=== PATIENT | male | born 1965 | race Caucasian/White ===

== ENCOUNTER 2016-08-27 10:25 | Inpatient (IN) | payer MEDICAID ==
[2016-08-27] VITALS (9 sets, daily range): BP systolic 106–126; BP diastolic 76–86; PULSE 69–78; RESP 11–16
[~2016-08-27] VITALS: Ht 160 cm; Wt 72.7 kg
[2016-08-27] MEDS ORDERED: ASPIRIN 325 MG TAB PO STA (10:48)
[2016-08-27] MEDS ORDERED: NITROGLYCERIN 2% 1 GM OINT PKT TD STA (10:48)
--- NOTE | 2016-08-27 10:53 | ERA ---
ER Documentation Chief Complaint Date/Time DATE: 08/27/16 TIME: 10:49 Chief Complaint CP with SOB x 1 day HPI This is a 51-year-old male who presents with left-sided chest pressure radiating to his left upper extremity. The patient is a Kosovan speaker, and hot billet shear operator was used. He does not have any significant past medical history but does have a family history with a mother with acute SC at an early age. He states personally 3 years ago he felt something similar but was not evaluated. Over the course of that timeframe he occasionally has this discomfort usually when he is exerting himself and sweating while at work. He works in construction. He denies any exertional component today and states that the symptoms started yesterday evening. He describes constant symptoms now currently since yesterday around 11 PM. He denies any pleuritic pain, no migratory pain, no pain to the middle of his back. No reproducible symptoms. ROS All systems reviewed and are negative except as per history of present illness. Medications Home Meds No Active Prescriptions or Reported Meds Allergies Allergies: Coded Allergies: No Known Allergy (Unverified , 08/27/16) FmHx Family History: coronary disease, No diabetes Physical Exam Vitals Vital Signs Date Time Temp Pulse Resp B/P Pulse Ox O2 Delivery O2 Flow Rate FiO2 08/27/16 10:30 98.2 66 18 162/94 100 Physical Exam General: Well developed, well nourished, no acute distress Head: Normocephalic, atraumatic. Eyes: Pupils equally reactive, EOM intact ENT: Moist mucous membranes Neck: Supple, no lymphadenopathy Respiratory: Lungs clear bilaterally, no distress Cardiovascular: RRR, no murmurs, rubs, or gallops Abdominal: Soft, non-tender, non-distended, no peritoneal signs : Deferred MSK: No edema, no unilateral swelling, 5/5 strength, no pulse deficits Neurologic: Alert and oriented, moving all extremities, normal speech, no focal weakness, no cerebellar signs Skin: No rash Psych: Normal mood Result Diagram: 08/27/16 1105 08/27/16 1105 Results 24 hrs Laboratory Tests Test 08/27/16 11:05 White Blood Count 10.810^3/ul Red Blood Count 5.4510^6/ul Hemoglobin 16.0g/dl Hematocrit 45.6% Mean Corpuscular Volume 83.7fl Mean Corpuscular Hemoglobin 29.4pg Mean Corpuscular Hemoglobin Concent 35.1g/dl Red Cell Distribution Width 12.4% Platelet Count 34151^3/UL Mean Platelet Volume 10.7fl Neutrophils % 62.4% Lymphocytes % 27.9% Monocytes % 8.1% Eosinophils % 1.1% Basophils % 0.4% Nucleated Red Blood Cells % 0.0/100WBC Neutrophils # 6.710^3/ul Lymphocytes # 3.010^3/ul Monocytes # 0.910^3/ul Eosinophils # 0.110^3/ul Basophils # 0.010^3/ul Nucleated Red Blood Cells # 0.010^3/ul Prothrombin Time 13.0Sec Prothrombin Time Ratio 1.0 INR International Normalized Ratio 0.98 Activated Partial Thromboplast Time 26.5Sec Sodium Level 137mmol/L Potassium Level 3.9mmol/L Chloride Level 94mmol/L Carbon Dioxide Level 27mmol/L Anion Gap 20 Blood Urea Nitrogen 9mg/dl Creatinine 0.72mg/dl Glucose Level 338mg/dl Calcium Level 9.3mg/dl Troponin I 5.590ng/ml Current Medications Medications (Trade) Dose Ordered Sig/Vitaly Route PRN Reason Start Time Stop Time Status Last Admin Dose Admin Aspirin (Aspirin) 325 mg ONCE STAT PO 08/27/16 10:48 08/27/16 10:49 DC 08/27/16 11:16 Nitroglycerin (Nitroglycerin 2% Oint) 1 inch ONCE STAT TD 08/27/16 10:48 08/27/16 10:49 DC 08/27/16 11:16 Morphine Sulfate (morphine) 4 mg ONCE STAT IV 08/27/16 11:56 08/27/16 11:58 DC Ondansetron HCl (Zofran Inj) 4 mg ONCE STAT IV 08/27/16 11:56 08/27/16 11:58 DC Heparin Sodium (Porcine) (Heparin (1000 Units/ml)) 5,000 unit ONCE STAT IV 08/27/16 12:08 08/27/16 12:09 DC Procedures/MDM EKG, MONITORS, & DIAGNOSTIC IMAGING: EKG: I reviewed and interpreted a 12-lead EKG. Rhythm: Normal sinus rhythm Ectopy: None Intervals: No abnormalities ST segments: No elevations or depressions T waves: No contiguous inversions Repeat EKG: EKG: I reviewed and interpreted a 12-lead EKG. Rhythm: Normal sinus rhythm Ectopy: None Intervals: No abnormalities ST segments: No elevations or depressions T waves: No contiguous inversions 3rd EKG EKG: I reviewed and interpreted a 12-lead EKG. Rhythm: Normal sinus rhythm Ectopy: None Intervals: No abnormalities ST segments: No elevations or depressions T waves: No contiguous inversions Chest x-ray: I reviewed and interpreted a 1 view of the chest Mediastinum: No enlargement Cardiac silhouette: No cardiomegaly Airspace: Clear lung vance bilaterally without evidence of pneumothorax Bones: No evidence of fracture LAB INTERPRETATION: Elevated troponin, elevated glucose MEDICAL DECISION MAKING: The patient's history, physical exam and clinical presentation is concerning for possible cardiogenic etiology and acute coronary syndrome. I am somewhat concerned about the patient's exertional component as well as his family history however the patient does not have any other significant past medical history to suggest early cardiac disease. However, the patient also does not have a primary care physician. All these elements warrant cardiac workup in the emergency room and inpatient hospitalization to rule out ACS can risk stratify the patient and consider provocative testing. Based on the patient's clinical exam and history and risk factors, I have a much lower clinical concern for pulmonary embolism, acute aortic dissection, pneumothorax, pneumonia, cardiac tamponade HEART Score: 2 MACE Rate: 1.7% Shared Decision Making: We had a conversation regarding risk stratification, MACE rate, and the risks, benefits, alternatives of disposition planning options. Disposition planning: I strongly recommend hospitalization given his exertional component, family history and lack of outpatient follow-up. ER COURSE: Aspirin and nitroglycerin provided. Improved chest pain. The patient still has approximately 5 out of 10 chest pain. His troponin is come back significantly elevated. Given the patient's persistence of pain, the fact that he has a non-ST elevation myocardial infarction consistent with likely unstable angina and high risk for occlusive lesion I have contacted the customer service engineer. The patient does not meet STEMI criteria however may benefit from urgent angiography. Dr. Swartz, is the credit card clerk on-call , has reviewed the EKGs and the case and recommends heparin bolus of 5000 units and will take the patient to the Cat Swamper. We finalized a conversation at 12: 05 PM. The patient was informed using an hot billet shear operator. He was provided morphine for pain. Cardiac pads were placed on the patient. He is being prepped for the Cat Swam[facility]. Cat Swamper activated at 12:09 PM I kept the patient and/or family informed of laboratory and diagnostic imaging results throughout the emergency room course. DISPOSITION PLAN: Telemetry admission for risk stratification, consideration for provocative testing and rule out of acute coronary syndrome. CONSULTATION: Accepting care team and consultations: I discussed the current laboratory data, diagnostic imaging and emergency care provided. Admitting team: Dr. Pool Admitting team indication: Insurance directed certified pharmacist assistant on-call Dr. Swartz is en route Critical Care Note: Total time: 46 minutes Indication/Organ System Threat: Acute coronary syndrome I spent the above amount of critical care time with the patient, not including billable procedures. This included chart review, consultations, repeat bedside evaluations, and titration of appropriate medications to prevent cardiopulmonary or respiratory collapse. Departure Diagnosis: Primary Impression: Chest pain Qualified Code: R07.9 - Chest pain, unspecified type Additional Impressions: Non-ST elevation myocardial infarction (NSTEMI) Acute coronary syndrome Hyperglycemia Condition: Serious RIKI BANUELOS MD Aug 27, 2016 10:53
[2016-08-27 11:13] LABS: BASOPHILS % 0.4 % (0.0-2.0); EOSINOPHILS # 0.1 10^3/ul (0.0-0.5); EOSINOPHILS % 1.1 % (0.0-7.0); HEMATOCRIT 45.6 % (42.0-52.0); LYMPHOCYTES % 27.9 % (15.0-51.0); MEAN CORPUSCULAR HEMOGLOBIN 29.4 pg (29.0-33.0); MEAN CORPUSCULAR HGB CONC 35.1 g/dl (32.0-37.0); MEAN CORPUSCULAR VOLUME 83.7 fl (82.0-101.0); MEAN PLATELET VOLUME 10.7 fl (7.4-10.4); MONOCYTE # 0.9 10^3/ul (0.3-0.9); MONOCYTES % 8.1 % (0.0-11.0); NEUTROPHIL # 6.7 10^3/ul (1.6-7.5); NEUTROPHILS % 62.4 % (39.0-77.0); PLATELET COUNT 271 10^3/UL (140-415); RED BLOOD COUNT 5.45 10^6/ul (4.70-6.10); RED CELL DISTRIBUTION WIDTH 12.4 % (11.5-14.5); WHITE BLOOD COUNT 10.8 10^3/ul (4.8-10.8)
--- NOTE | 2016-08-27 11:33 | RADRPT ---
PROCEDURE: Chest x-ray CLINICAL INDICATION: Chest pain TECHNIQUE: Chest single view COMPARISON: None FINDINGS: The heart is normal in size. The pulmonary vessels are normal in caliber. The lungs are clear. Th e costophrenic angles are sharp. The visualized bony thorax is unremarkable. IMPRESSION: No acute cardiopulmonary disease. RPTAT: HH .Peter Funes MD, Date Time Electronically viewed and signed by .Peter Funes MD, MD on 08/27/2016 11:33 .W/
[2016-08-27 11:35] LABS: CALCIUM 9.3 mg/dl (8.4-10.2); CREATININE 0.72 mg/dl (0.61-1.24); POTASSIUM 3.9 mmol/L (3.5-5.1)
[2016-08-27 11:42] LABS: INR 0.98
[2016-08-27 11:43] LABS: PARTIAL THROMBOPLASTIN TIME 26.5 Sec (25.0-35.0)
[2016-08-27 11:54] LABS: TROPONIN-I 5.59 ng/ml (0.00-0.12)
[2016-08-27] MEDS ORDERED: morphine 4 MG/ML VIAL IV STA (11:56)
[2016-08-27] MEDS ORDERED: ONDANSETRON 4 MG INJ IV STA (11:56)
[2016-08-27] MEDS ORDERED: HEPARIN 1000 UNITS/ML 10 ML INJ IV STA (12:08)
[2016-08-27] MEDS ORDERED: LIDOCAINE 1% (MDV) 20 ML INJ ONE (12:38)
[2016-08-27] MEDS ORDERED: FENTAnyl 50 MCG/ML VIAL ONE (12:38)
[2016-08-27] MEDS ORDERED: HEPARIN 1000 UNITS/ML 10 ML INJ ONE (12:38)
[2016-08-27] MEDS ORDERED: IODIXANOL LOCM 100 ML BTL ONE ×2 (12:38→14:49)
[2016-08-27] MEDS ORDERED: MIDAZOLAM 1 MG/ML 2 ML INJ ONE ×2 (12:39→14:10)
[2016-08-27] MEDS ORDERED: VERAPAMIL 5 MG INJ ONE (12:39)
[2016-08-27] MEDS ORDERED: NITROGLYCERIN (IC) 100 MCG/ML INJ ONE (12:39)
--- NOTE | 2016-08-27 12:57 | CONS ---
Date/Time of Note Date/Time of Note DATE: 08/27/16 TIME: 12:42 Assessment/Plan Assessment/Plan Chief Complaint/Hosp Course 51 yo with NSTEMI. Problems: Additional Assessment/Plan NSTEMI Hyperglycemia, probable diabetes Binge alcoholism Plan: Cardiac catheterization with possible intervention The procedure, risks and benefits discussed with the patient and his , with an power transformer repairer present He agrees to proceed, all questions answered Patient received asa and heparin in the ER, will further anticoagulate based on laboratory phlebotomist findings Appropriate meds and echo Patient has been advised that the quantity of etoh that he is drinking is not healthy Consultation Date/Type/Reason Admit Date/Time August 27, 2016 Date of Consultation: Aug 27, 2016 Reason for Consultation NSTEMI and persistent chest pain Referring Provider: RIKI BANUELOS MD Hx of Present Illness 51 year-old who has not seen a doctor in 15 years, presents to the ER with chest pressure that has been intermittent since yesterday. He had a similar episode, less severe, about 6 years ago, for which he did not seek medical care. Pain has been associated with diaphoresis. 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 When I was called, patient was having persistent pain, but since then he has received morphine which has relieved the pain. He quit smoking 13 years ago, but admits to binge drinking, and will have 9-12 beers at a time. Last alcoholic beverage was a week ago. Mother had some sort of similar event in [facility] in her 30's, was treated with medicines, is still alive. History obtained with the assistance of Micheal GARZA who served as travel money advisor Constitutional: improved Eyes: no complaints ENT: no complaints Respiratory: no complaints Cardiovascular: chest pain Gastrointestinal: no complaints Genitourinary: no complaints Musculoskeletal: other (arm discomfort as above) Skin: no complaints Neurologic: no complaints Endocrine: no complaints Psychological: nl mood/affect, no complaints Past Medical History Medical History: no pertinent history (Has not seen a doctor in 15 years) Past Surgical History Past Surgical Hx: other (left hand surgery due to shrapnel injury during war in [facility]) Family History Significant Family History: heart disease (questionable NV in mother at young age) Social History works construction Alcohol Use: heavy (binge drinking as in hpi) Smoking Status: Former smoker Drug Use: none Exam/Review of Systems Vital Signs Vitals Vital Signs Date Time Temp Pulse Resp B/P Pulse Ox O2 Delivery O2 Flow Rate FiO2 08/27/16 12:00 69 19 128/94 98 Room Air 08/27/16 10:30 98.2 Exam Constitutional: alert, oriented, well developed Psych: nl mood/affect, no complaints Head: atraumatic, normocephalic Eyes: EOMI, PERRL, nl conjunctiva, nl lids, nl sclera ENMT: nl external ears & nose, nl lips & teeth, nl nasal mucosa & septum Neck: non-tender, supple Respiratory: clear to auscultation, normal air movement Cardiovascular: nl pulses, other (PMI not palpable), regular rate and rhythm, No murmurs/extra sounds Gastrointestinal: non-tender, soft, No hepatomegaly Musculoskeletal: nl extremities to inspection Extremities: normal pulses (Normal radial and DP pulses) Neurological: nl mental status, nl speech Skin: nl turgor, No rash or lesions Results Positive troponin and elevated glucose noted. Result Diagram: 08/27/16 1105 08/27/16 1105 Results 24 hrs Laboratory Tests Test 08/27/16 11:05 White Blood Count 10.8 Red Blood Count 5.45 Hemoglobin 16.0 Hematocrit 45.6 Mean Corpuscular Volume 83.7 Mean Corpuscular Hemoglobin 29.4 Mean Corpuscular Hemoglobin Concent 35.1 Red Cell Distribution Width 12.4 Platelet Count 271 Mean Platelet Volume 10.7 H Neutrophils % 62.4 Lymphocytes % 27.9 Monocytes % 8.1 Eosinophils % 1.1 Basophils % 0.4 Nucleated Red Blood Cells % 0.0 Neutrophils # 6.7 Lymphocytes # 3.0 H Monocytes # 0.9 Eosinophils # 0.1 Basophils # 0.0 Nucleated Red Blood Cells # 0.0 Prothrombin Time 13.0 Prothrombin Time Ratio 1.0 INR International Normalized Ratio 0.98 Activated Partial Thromboplast Time 26.5 Sodium Level 137 Potassium Level 3.9 Chloride Level 94 L Carbon Dioxide Level 27 Anion Gap 20 H Blood Urea Nitrogen 9 Creatinine 0.72 Glucose Level 338 H Calcium Level 9.3 Troponin I 5.590 *H Procedures Procedures EKG demonstrates NSR, incomplete RBBB, inferior infarct age indeterminate, subtle ST elevations 1 mm in V3-V4 RIDDHI RANDHAWA Aug 27, 2016 12:55
[2016-08-27] MEDS ORDERED: SOD CHLORIDE 0.9% 500 ML ONE (13:08)
[2016-08-27] MEDS ORDERED: CLOPIDOGREL 300 MG TAB ONE ×2 (13:48→14:25)
[2016-08-27] MEDS ORDERED: IODIXANOL LOCM 50 ML BTL ONE (14:49)
[2016-08-27] MEDS ORDERED: SOD CHLORIDE 0.9% 1,000 ML IV SCH (15:00)
[2016-08-27] MEDS ORDERED: METOPROLOL (XL) 25 MG TAB PO SCH (15:00)
--- NOTE | 2016-08-27 15:13 | EN ---
Date/Time of Note Date/Time of Note DATE: 08/27/16 TIME: 14:53 Event Note Cardiology Cardiology Event Note Cardiac Catheterization Report Date of Procedure: August 27, 2016 Pre-Procedure Dx: NSTEMI with persistent pain Post-Procedure Dx: Same, with 3 vessel coronary disease, Procedures performed: Coronary angiography, left heart catheterization, left ventriculography, angioplasty and stent placement to the mid LAD and ostial/ proximal LCX extending into the OM1 Findings: Left main normal LAD appears normal in its very short proximal portion. There is a mid lesion 90 %, 17 mm in length. There is a moderate sized high diagonal vessel which bifurcates into two small vessels and these are diffusely diseased. The distal LAD wraps around the apex to feed the PDA territory. LCX has an 80% ostial and proximal lesion extending just past a large OM1. The vessel distal to the OM1 is small and diffusely diseased. The LCX and OM give collaterals to the inferior wall. 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 LVEF 70% with very focal inferobasal akinesis. A gradient was measured, and appeared to be increased (see log), but doubt that this is accurate as there was no difficulty in the catheter crossing the aortic valve, and will be reassessed with echo. Indications: Patient presented with chest pain starting yesterday, was stuttering in nature, and persistent this morning. EKG shows an incomplete RBBB , inferior Q's, and some nonspecific changes. However, pain was persistent, and troponin elevated at 5, so patient brought urgently to the pathology laboratory aide. Informed consent obtained using Micheal GARZA as exercise specialist. Patient received sedation with versed and fentanyl. Then access obtained in right radial artery after Terence's test, modified Seldinger technique used, 6F sheath placed. Patient already received heparin in the ER. Verapamil 2.5 mg and ntg 200 mcg given through the sheath. Using a J-wire, Rashaad catheter advanced to the aortic root, was not successful in engaging any coronaries, so a FL4 engaged an anomalous RCA and a FL 3.5 engaged the left main. Images taken with injection of contrast. All catheters removed over an exchange length wire. An LV gram was performed with a pigtail catheter, contrast injected and images taken. Based on the presence of significant two vessel coronary disease with occluded RCA, with normal LV systolic function, it was decided to proceed with a coronary intervention, to intervene upon the more critically significant LAD, and then proceed to the ostial LCX if the LAD intervention was not complicated. Additional heparin was administered and ACT was ascertained to be sufficiently elevated. An FL3.5 guide catheter was used. A Luge wire passed through the mid LAD lesion without difficulty, and the lesion was direct stented with a 2.5 x 20 mm drug-eluting stent. Following this, the guide catheter was exchanged for a CLS 3.0 for better support. This engaged the LM without difficulty. The same Luge wire was redirected down the LCX and OM. The LCX lesion was directly stented with a 3.0 x 12 mm drug-eluting stent. Angiography was performed to assess both vessel interventions, including wire out shots, demonstrating good apposition of both stents and no dissection. During the case the patient received a total of 600 mg of clopidogrel. At the end of the case, the radial sheath was removed and replaced with a TR band. Discussion: NSTEMI with the culprit lesion likely the mid LAD, and also with a significant LCX lesion. Both were successfully addressed with direct stenting with drug-eluting stents. The RCA was thought to be chronically occluded. There was brief consideration of sending the patient for CABG, given 3-vessel coronary disease in a diabetic, but it was felt that with normal LVEF and fairly uncomplicated lesions that a PCI would be a good option. Findings discussed with the patient and his , using Micheal GARZA as an grain elevator operator, discussed importance of medication compliance. Anticipate discharge home tomorrow, with need for regular follow-up. RIDDHI RANDHAWA Aug 27, 2016 15:12
[2016-08-27] MEDS ORDERED: HYDROCODONE/APAP (5/325) TAB PO PRN (15:30)
[2016-08-27] MEDS ORDERED: MAGNESIUM HYDROXIDE 30ML CUP PO PRN (15:30)
[2016-08-27] MEDS ORDERED: ALBUTEROL/IPRATROPIUM (NEB) 3 ML AMP HHN PRN (15:30)
[2016-08-27] MEDS ORDERED: ACETAMINOPHEN 325 MG TAB PO PRN (15:30)
[2016-08-27] MEDS ORDERED: LORAZEPAM 2 MG INJ IV PRN (15:30)
[2016-08-27] MEDS ORDERED: DOCUSATE SODIUM 100 MG CAP PO PRN (15:30)
[2016-08-27] MEDS ORDERED: NACL 0.9% 3 ML SYG IV SCH (15:30)
[2016-08-27] MEDS ORDERED: hydrALAzine 20 MG INJ IV PRN (15:30)
[2016-08-27] MEDS ORDERED: ONDANSETRON 4 MG INJ IV PRN (15:30)
[2016-08-27] MEDS ORDERED: NA PHOSPHATE/BIPHOS 133 ML ENEMA PR PRN (15:30)
[2016-08-27] MEDS ORDERED: morphine 2 MG INJ IV PRN (15:30)
--- NOTE | 2016-08-27 15:39 | HP ---
Date/Time of Note Date/Time of Note DATE: 08/27/16 TIME: 15:35 Assessment/Plan VTE Prophylaxis VTE Prophylaxis Intervention: other (Aspirin, Plavix) Lines/Catheters IV [facility]ter [facility] Peripheral IV Assessment/Plan Chief Complaint/Hosp Course Assessment and plan: 51-year-old male with chest pain symptoms, signs of elevated troponin non-ST elevation ME, status post left heart cath with 2 drug- eluting stents placed for blockage. 1. Chest pain: Again status post left heart cath for non-ST elevation ME. -Continue aspirin Plavix, follow-up A1c, follow-up cardiology recommendations , continue current cardiac medications. Continue statin, monitor for signs of any chest pain. 2. Probable diabetes: Start sliding scale insulin, follow-up A1c. 3. History of alcoholism: Monitor for signs of withdrawal, consider starting banana bag. Ativan as needed. If worse symptoms, consider Librium. 4. GI prophylaxis: H2 josé miguel Problems: HPI/ROS Admit Date/Time Admit Date/Time August 27, 2016 ROS 51-year-old male past medical history of diabetes, hypertension, who presents with left-sided chest pressure radiating to his left upper extremity. He does not have any significant past medical history but does have a family history with a mother with acute ME at an early age. He states personally 3 years ago he felt something similar but was not evaluated. Over the course of that timeframe he occasionally has this discomfort usually when he is exerting himself and sweating while at work. He works in construction. He denies any exertional component today and states that the symptoms started yesterday evening. He describes constant symptoms now currently since yesterday around 11 PM. He denies any pleuritic pain, no migratory pain, no pain to the middle of his back. No reproducible symptoms. When he came into the ER today he was found with elevated troponin, signs of non-ST elevated ME, and taken to the Thermodynamics Engineer where he had 2 stents placed, one to his LAD, 1 to his circumflex artery. He is presently in the intensive care unit now on aspirin and Plavix. Eyes: no complaints ENT: no complaints Respiratory: no complaints Cardiovascular: chest pain Gastrointestinal: no complaints Genitourinary: no complaints Musculoskeletal: other (arm discomfort as above) Skin: no complaints Neurologic: no complaints Psychological: nl mood/affect, no complaints PMH/Family/Social Past Medical History Medical History: no pertinent history (Has not seen a doctor in 15 years) Past Surgical History Past Surgical Hx: other (left hand surgery due to shrapnel injury during war in [facility]) Social History Alcohol Use: heavy (binge drinking as in hpi) Smoking Status: Former smoker Drug Use: none Exam/Review of Systems Vital Signs Vitals Vital Signs Date Time Temp Pulse Resp B/P Pulse Ox O2 Delivery O2 Flow Rate FiO2 08/27/16 12:45 73 14 128/91 98 08/27/16 12:00 Room Air 08/27/16 10:30 98.2 Exam Exam General: Well developed, well nourished, no acute distress Head: Normocephalic, atraumatic. Eyes: Pupils equally reactive, EOM intact ENT: Moist mucous membranes Neck: Supple, no lymphadenopathy Respiratory: Lungs clear bilaterally, no distress Cardiovascular: RRR, no murmurs, rubs, or gallops Abdominal: Soft, non-tender, non-distended, no peritoneal signs MSK: No edema, no unilateral swelling, 5/5 strength, no pulse deficits Neurologic: Alert and oriented, moving all extremities, normal speech, no focal weakness, no cerebellar signs Psych: Normal mood Labs Result Diagram: 08/27/16 1105 08/27/16 1105 Medications Medications Current Medications Sodium Chloride (NS) 1,000 ml @ 100 mls/hr Q10H IV ; Start 08/27/16 at 15:00; Stop 08/28/16 at 00:59 Aspirin (Aspirin) 81 mg DAILY PO ; Start 08/28/16 at 09:00 Clopidogrel Bisulfate (plaVIX) 75 mg DAILY PO ; Start 08/28/16 at 09:00 Atorvastatin Calcium (Lipitor) 80 mg HS PO ; Start 08/27/16 at 21:00 Losartan Potassium (Cozaar) 25 mg DAILY PO ; Start 08/28/16 at 09:00 Metoprolol Succinate (Toprol Xl) 25 mg DAILY PO ; Start 08/27/16 at 15:00 PÉREZ KELLEY Aug 27, 2016 15:39
[2016-08-27] MEDS ORDERED: GLUCOSE GEL 15 GRAM TUBE BUCCAL PRN (16:00)
[2016-08-27] MEDS ORDERED: DEXTROSE 50% 50 ML SYRINGE IV PRN ×2 (16:00)
[2016-08-27] MEDS ORDERED: GLUCOSE GEL 15 GRAM TUBE PO PRN ×2 (16:00)
[2016-08-27] MEDS ORDERED: GLUCAGON 1 MG INJ IM PRN (16:00)
[2016-08-27] MEDS: FAMOTIDINE 20 MG TAB PO SCH ×2 (16:21→20:13)
[2016-08-27 17:28] LABS: BASOPHILS % 0.4 % (0.0-2.0); EOSINOPHILS # 0.1 10^3/ul (0.0-0.5); EOSINOPHILS % 1.3 % (0.0-7.0); HEMATOCRIT 43.9 % (42.0-52.0); HEMOGLOBIN 15.1 g/dl (14.0-18.0); LYMPHOCYTES # 3.6 10^3/ul (0.8-2.9); LYMPHOCYTES % 33.4 % (15.0-51.0); MEAN CORPUSCULAR HEMOGLOBIN 29.2 pg (29.0-33.0); MEAN CORPUSCULAR HGB CONC 34.4 g/dl (32.0-37.0); MEAN CORPUSCULAR VOLUME 84.9 fl (82.0-101.0); MONOCYTE # 0.8 10^3/ul (0.3-0.9); MONOCYTES % 7.7 % (0.0-11.0); NEUTROPHIL # 6.1 10^3/ul (1.6-7.5); PLATELET COUNT 235 10^3/UL (140-415); RED BLOOD COUNT 5.17 10^6/ul (4.70-6.10); RED CELL DISTRIBUTION WIDTH 12.5 % (11.5-14.5); WHITE BLOOD COUNT 10.7 10^3/ul (4.8-10.8)
[2016-08-27] MEDS: INSULIN ASPART [NOVOLOG] 3 ML PEN SC SCH ×2 (17:40→20:13)
[2016-08-27 18:03] LABS: CK-MB 18.9 ng/ml (0.0-2.4); TROPONIN-I 7.69 ng/ml (0.00-0.12)
[2016-08-27] MEDS: NITROGLYCERIN (SL) 0.4 MG TAB SL PRN (19:42)
[2016-08-27] MEDS: ATORVASTATIN 80 MG TAB PO SCH (20:13)
[2016-08-27] MEDS: INSULIN GLARGINE [LANtus] 3 ML PEN SC SCH (20:15)
[2016-08-27 23:42] LABS: TROPONIN-I 6.24 ng/ml (0.00-0.12)
[2016-08-28] VITALS (18 sets, daily range): BP systolic 103–129; BP diastolic 66–95; PULSE 69–81; RESP 10–22; Ht 160 cm; Wt 72.7 kg
[2016-08-28] MEDS: ACCU-CHEK XX SCH (02:16)
[2016-08-28] MEDS: NITROGLYCERIN (SL) 0.4 MG TAB SL PRN (02:16)
[2016-08-28 05:31] LABS: BASOPHILS % 0.4 % (0.0-2.0); EOSINOPHILS # 0.1 10^3/ul (0.0-0.5); EOSINOPHILS % 0.7 % (0.0-7.0); HEMATOCRIT 40.3 % (42.0-52.0); HEMOGLOBIN 13.9 g/dl (14.0-18.0); LYMPHOCYTES # 2.6 10^3/ul (0.8-2.9); MEAN CORPUSCULAR HGB CONC 34.5 g/dl (32.0-37.0); MEAN CORPUSCULAR VOLUME 84.1 fl (82.0-101.0); MEAN PLATELET VOLUME 10.9 fl (7.4-10.4); MONOCYTES % 8.8 % (0.0-11.0); NEUTROPHIL # 7.5 10^3/ul (1.6-7.5); NEUTROPHILS % 66.7 % (39.0-77.0); PLATELET COUNT 232 10^3/UL (140-415); RED BLOOD COUNT 4.79 10^6/ul (4.70-6.10); RED CELL DISTRIBUTION WIDTH 12.9 % (11.5-14.5); WHITE BLOOD COUNT 11.3 10^3/ul (4.8-10.8)
[2016-08-28 05:56] LABS: MAGNESIUM 1.8 mg/dl (1.7-2.5); PHOSPHORUS 3.3 mg/dl (2.5-4.9)
[2016-08-28 05:59] LABS: CALCIUM 8.6 mg/dl (8.4-10.2); CHOL/HDL RATIO 7.8 RATIO; CREATININE 0.76 mg/dl (0.61-1.24)
--- NOTE | 2016-08-28 07:16 | PN ---
Date/Time of Note Date/Time of Note DATE: 08/28/16 TIME: 07:06 Assessment/Plan VTE Prophylaxis VTE Prophylaxis Intervention: ambulation Lines/Catheters [facility] Saline Lock Assessment/Plan Chief Complaint/Hosp Course 51 yo with NSTEMI, post pci to LCX and LAD, with a chronically occluded RCA. 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 Exam/Review of Systems Vital Signs Vitals Vital Signs Date Time Temp Pulse Resp B/P Pulse Ox O2 Delivery O2 Flow Rate FiO2 08/28/16 06:00 76 16 125/88 99 Room Air 08/28/16 04:00 98.3 Intake and Output 08/27/16 08/27/16 08/28/16 15:00 23:00 07:00 Intake Total 820 ml 200 ml Output Total 1000 ml Balance 820 ml -800 ml Exam Constitutional: alert, oriented, well developed Psych: nl mood/affect, no complaints Head: atraumatic, normocephalic Eyes: EOMI, nl conjunctiva ENMT: nl external ears & nose Neck: non-tender, supple, No bruits, No jvd Respiratory: clear to auscultation, normal air movement Cardiovascular: nl pulses, regular rate and rhythm Gastrointestinal: non-tender, soft Musculoskeletal: nl extremities to inspection Extremities: normal pulses (right radiall pulse intact, right wrist warm) Neurological: nl mental status, nl speech Skin: nl turgor, No rash or lesions Results Result Diagram: 08/28/16 0438 08/28/16 0438 Results 24 hrs Laboratory Tests Test 08/27/16 11:05 08/27/16 17:01 08/27/16 17:24 08/27/16 20:11 White Blood Count 10.8 10.7 Red Blood Count 5.45 5.17 Hemoglobin 16.0 15.1 Hematocrit 45.6 43.9 Mean Corpuscular Volume 83.7 84.9 Mean Corpuscular Hemoglobin 29.4 29.2 Mean Corpuscular Hemoglobin Concent 35.1 34.4 Red Cell Distribution Width 12.4 12.5 Platelet Count 271 235 Mean Platelet Volume 10.7 H 11.0 H Neutrophils % 62.4 57.0 Lymphocytes % 27.9 33.4 Monocytes % 8.1 7.7 Eosinophils % 1.1 1.3 Basophils % 0.4 0.4 Nucleated Red Blood Cells % 0.0 0.0 Neutrophils # 6.7 6.1 Lymphocytes # 3.0 H 3.6 H Monocytes # 0.9 0.8 Eosinophils # 0.1 0.1 Basophils # 0.0 0.0 Nucleated Red Blood Cells # 0.0 0.0 Prothrombin Time 13.0 Prothrombin Time Ratio 1.0 INR International Normalized Ratio 0.98 Activated Partial Thromboplast Time 26.5 Sodium Level 137 Potassium Level 3.9 Chloride Level 94 L Carbon Dioxide Level 27 Anion Gap 20 H Blood Urea Nitrogen 9 Creatinine 0.72 Glucose Level 338 H Calcium Level 9.3 Troponin I 5.590 *H 7.690 *H Hemoglobin A1c 12.8 H Creatine Kinase 352 H Creatine Kinase Index 5.4 Creatinine Kinase MB (Mass) 18.90 H Free Thyroxine 1.10 Bedside Glucose 196 152 Test 08/27/16 22:28 08/28/16 02:15 08/28/16 04:38 Creatine Kinase 301 H Creatine Kinase Index 4.3 Creatinine Kinase MB (Mass) 13.00 H Troponin I 6.240 *H Bedside Glucose 219 White Blood Count 11.3 H Red Blood Count 4.79 Hemoglobin 13.9 L Hematocrit 40.3 L Mean Corpuscular Volume 84.1 Mean Corpuscular Hemoglobin 29.0 Mean Corpuscular Hemoglobin Concent 34.5 Red Cell Distribution Width 12.9 Platelet Count 232 Mean Platelet Volume 10.9 H Neutrophils % 66.7 Lymphocytes % 23.0 Monocytes % 8.8 Eosinophils % 0.7 Basophils % 0.4 Nucleated Red Blood Cells % 0.0 Neutrophils # 7.5 Lymphocytes # 2.6 Monocytes # 1.0 H Eosinophils # 0.1 Basophils # 0.0 Nucleated Red Blood Cells # 0.0 Sodium Level 139 Potassium Level 4.0 Chloride Level 100 Carbon Dioxide Level 28 Anion Gap 15 Blood Urea Nitrogen 11 Creatinine 0.76 Glucose Level 211 # Hemoglobin A1c 12.3 H Calcium Level 8.6 Phosphorus Level 3.3 Magnesium Level 1.8 Triglycerides Level 205 H Cholesterol Level 181 LDL Cholesterol, Calculated 117 HDL Cholesterol 23 L Cholesterol/HDL Ratio 7.8 Medications Medications Current Medications Aspirin (Aspirin) 81 mg DAILY PO ; Start 08/28/16 at 09:00 Clopidogrel Bisulfate (plaVIX) 75 mg DAILY PO ; Start 08/28/16 at 09:00 Atorvastatin Calcium (Lipitor) 80 mg HS PO Last administered on 08/27/16 20:13 ; Admin Dose 80 MG; Start 08/27/16 at 21:00 Losartan Potassium (Cozaar) 25 mg DAILY PO ; Start 08/28/16 at 09:00 Metoprolol Succinate (Toprol Xl) 25 mg DAILY PO Last administered on 08/27/16 17:24; Admin Dose 25 MG; Start 08/27/16 at 15:00 Ondansetron HCl (Zofran Inj) 4 mg Q6H PRN IV NAUSEA AND/OR VOMITING; Start at 15:30 Acetaminophen (Tylenol Tab) 650 mg Q6H PRN PO PAIN LEVEL 1-3 OR FEVER; Start at 15:30 Acetaminophen/ Hydrocodone Bitart ([place] (5/325)) 1 tab Q6H PRN PO MODERATE PAIN LEVEL 4-6; Start 08/27/16 at 15:30 Morphine Sulfate (morphine) 2 mg Q4H PRN IV SEVERE PAIN LEVEL 7-10 Last administered on 08/27/16 19:12; Admin Dose 2 MG; Start 08/27/16 at 15:30 Docusate Sodium (Colace) 100 mg Q12H PRN PO CONSTIPATION; Start 08/27/16 at 15: 30 Magnesium Hydroxide (Milk Of Mag) 30 ml DAILY PRN PO CONSTIPATION; Start at 15:30 Sodium Biphosphate/ Sodium Phosphate (Fleet Enema) 133 ml DAILY PRN MS CONSTIPATION; Start 08/27/16 at 15:30 Famotidine (Pepcid) 20 mg Q12 PO Last administered on 08/27/16 20:13; Admin Dose 20 MG; Start 08/27/16 at 15:30 Lorazepam (Ativan) 0.5 mg Q6H PRN IV ANXIETY; Start 08/27/16 at 15:30 Hydralazine HCl (Apresoline) 10 mg Q6H PRN IV ELEVATED BLOOD PRESSURE; Start at 15:30 Nitroglycerin (Nitroglycerin (Sl Tab) 0.4 Mg) 1 tab Q5M PRN SL ANGINA Last administered on 08/28/16 02:16; Admin Dose 1 TAB; Start 08/27/16 at 15:30 Diagnostic Test (Pha) (Accu-Chek) 1 ea 02 XX Last administered on 08/28/16 02: 16; Admin Dose 1 EA; Start 08/28/16 at 02:00 Insulin Glargine 15 unit 15 unit DAILY@20 SC Last administered on 08/27/16 20: 15; Admin Dose 15 UNIT; Start 08/27/16 at 20:00 Multivitamins/ Thiamine HCl/ Folic Acid/Sodium Chloride (Mvi Adult/ Vitamin B1/ Folic Acid/NS) 1,011.2 ml @ 125 mls/ hr DAILY@09 IVPB ; Start 08/28/16 at 09:00 Miscellaneous Information 1 ea NOTE XX ; Start 08/27/16 at 16:00 Glucose (Glutose) 15 gm Q15M PRN PO DECREASED GLUCOSE; Start 08/27/16 at 16:00 Glucose (Glutose) 22.5 gm Q15M PRN PO DECREASED GLUCOSE; Start 08/27/16 at 16: 00 Dextrose (D50w Syringe) 25 ml Q15M PRN IV DECREASED GLUCOSE; Start 08/27/16 at 16:00 Dextrose (D50w Syringe) 50 ml Q15M PRN IV DECREASED GLUCOSE; Start 08/27/16 at 16:00 Glucagon (Glucagen) 1 mg Q15M PRN IM DECREASED GLUCOSE; Start 08/27/16 at 16:00 Glucose (Glutose) 15 gm Q15M PRN BUCCAL DECREASED GLUCOSE; Start 08/27/16 at 16 :00 RIDDHI RANDHAWA Aug 28, 2016 07:16
[2016-08-28] MEDS ORDERED: MULTIVITAMINS 10 ML, THIAMINE 100 MG, FOLIC ACID 1 MG in SOD CHLORIDE 0.9% 1,000 ML IVPB SCH (09:00)
[2016-08-28] MEDS: LOSARTAN 25 MG TAB PO SCH (09:10)
[2016-08-28] MEDS: ASPIRIN 81 MG TAB PO SCH (09:10)
[2016-08-28] MEDS: CLOPIDOGREL 75 MG TAB PO SCH (09:10)
[2016-08-28] MEDS: METOPROLOL (XL) 50 MG TAB PO SCH (09:10)
[2016-08-28] MEDS: FAMOTIDINE 20 MG TAB PO SCH ×2 (09:10→22:25)
[2016-08-28] MEDS: INSULIN ASPART [NOVOLOG] 3 ML PEN SC SCH ×4 (09:13→23:00)
--- NOTE | 2016-08-28 16:59 | PN ---
Date/Time of Note Date/Time of Note DATE: 08/28/16 TIME: 16:58 Assessment/Plan VTE Prophylaxis VTE Prophylaxis Intervention: SCD's Lines/Catheters IV Catheter Type (from Nrs): Saline Lock Assessment/Plan Assessment/Plan 51-year-old male presented with chest pain, found to have NSTEMI now sp 2v PCI, also with new diagnosis of DM2. PLAN #NSTEMI/CAD: sp PCI (2 stents) TTE done today, results pending cont asa/plavix cont statin, cardioselective bb, arb #DM2: sp RD eval, DM educator consult pending -a1c 12s -cont lantus, SSI -will need DM supplies at discharge #h/o EtOH abuse: cont clinical monitoring plan: dc tomorrow pending DM educator eval Subjective 24 Hr Interval Summary Free Text/Dictation Pt feeling much better. Denies any previous knowledge of having DM Exam/Review of Systems Vital Signs Vitals Vital Signs Date Time Temp Pulse Resp B/P Pulse Ox O2 Delivery O2 Flow Rate FiO2 08/28/16 16:00 80 08/28/16 14:00 12 120/95 100 Room Air 08/28/16 12:00 98.7 Intake and Output 08/27/16 08/27/16 08/28/16 15:00 23:00 07:00 Intake Total 820 ml 200 ml Output Total 1000 ml Balance 820 ml -800 ml Exam nad, sitting at side of bed no mrg lungs clear abd soft no rashes Results Result Diagram: 08/28/16 0438 08/28/16 0438 Results 24 hrs Laboratory Tests Test 08/27/16 17:01 08/27/16 17:24 08/27/16 20:11 08/27/16 22:28 White Blood Count 10.7 Red Blood Count 5.17 Hemoglobin 15.1 Hematocrit 43.9 Mean Corpuscular Volume 84.9 Mean Corpuscular Hemoglobin 29.2 Mean Corpuscular Hemoglobin Concent 34.4 Red Cell Distribution Width 12.5 Platelet Count 235 Mean Platelet Volume 11.0 H Neutrophils % 57.0 Lymphocytes % 33.4 Monocytes % 7.7 Eosinophils % 1.3 Basophils % 0.4 Nucleated Red Blood Cells % 0.0 Neutrophils # 6.1 Lymphocytes # 3.6 H Monocytes # 0.8 Eosinophils # 0.1 Basophils # 0.0 Nucleated Red Blood Cells # 0.0 Hemoglobin A1c 12.8 H Creatine Kinase 352 H 301 H Creatine Kinase Index 5.4 4.3 Creatinine Kinase MB (Mass) 18.90 H 13.00 H Troponin I 7.690 *H 6.240 *H Free Thyroxine 1.10 Bedside Glucose 196 152 Test 08/28/16 02:15 08/28/16 04:38 08/28/16 08:52 08/28/16 12:24 Bedside Glucose 219 161 179 White Blood Count 11.3 H Red Blood Count 4.79 Hemoglobin 13.9 L Hematocrit 40.3 L Mean Corpuscular Volume 84.1 Mean Corpuscular Hemoglobin 29.0 Mean Corpuscular Hemoglobin Concent 34.5 Red Cell Distribution Width 12.9 Platelet Count 232 Mean Platelet Volume 10.9 H Neutrophils % 66.7 Lymphocytes % 23.0 Monocytes % 8.8 Eosinophils % 0.7 Basophils % 0.4 Nucleated Red Blood Cells % 0.0 Neutrophils # 7.5 Lymphocytes # 2.6 Monocytes # 1.0 H Eosinophils # 0.1 Basophils # 0.0 Nucleated Red Blood Cells # 0.0 Sodium Level 139 Potassium Level 4.0 Chloride Level 100 Carbon Dioxide Level 28 Anion Gap 15 Blood Urea Nitrogen 11 Creatinine 0.76 Glucose Level 211 # Hemoglobin A1c 12.3 H Calcium Level 8.6 Phosphorus Level 3.3 Magnesium Level 1.8 Triglycerides Level 205 H Cholesterol Level 181 LDL Cholesterol, Calculated 117 HDL Cholesterol 23 L Cholesterol/HDL Ratio 7.8 Thyroid Stimulating Hormone (TSH) 0.552 Medications Medications Current Medications Aspirin (Aspirin) 81 mg DAILY PO Last administered on 08/28/16 09:10; Admin Dose 81 MG; Start 08/28/16 at 09:00 Clopidogrel Bisulfate (plaVIX) 75 mg DAILY PO Last administered on 08/28/16 09 :10; Admin Dose 75 MG; Start 08/28/16 at 09:00 Atorvastatin Calcium (Lipitor) 80 mg HS PO Last administered on 08/27/16 20:13 ; Admin Dose 80 MG; Start 08/27/16 at 21:00 Losartan Potassium (Cozaar) 25 mg DAILY PO Last administered on 08/28/16 09:10 ; Admin Dose 25 MG; Start 08/28/16 at 09:00 Ondansetron HCl (Zofran Inj) 4 mg Q6H PRN IV NAUSEA AND/OR VOMITING; Start at 15:30 Acetaminophen (Tylenol Tab) 650 mg Q6H PRN PO PAIN LEVEL 1-3 OR FEVER; Start at 15:30 Acetaminophen/ Hydrocodone Bitart ([place] (5/325)) 1 tab Q6H PRN PO MODERATE PAIN LEVEL 4-6; Start 08/27/16 at 15:30 Morphine Sulfate (morphine) 2 mg Q4H PRN IV SEVERE PAIN LEVEL 7-10 Last administered on 08/27/16 19:12; Admin Dose 2 MG; Start 08/27/16 at 15:30 Docusate Sodium (Colace) 100 mg Q12H PRN PO CONSTIPATION; Start 08/27/16 at 15: 30 Magnesium Hydroxide (Milk Of Mag) 30 ml DAILY PRN PO CONSTIPATION; Start at 15:30 Sodium Biphosphate/ Sodium Phosphate (Fleet Enema) 133 ml DAILY PRN IN CONSTIPATION; Start 08/27/16 at 15:30 Famotidine (Pepcid) 20 mg Q12 PO Last administered on 08/28/16 09:10; Admin Dose 20 MG; Start 08/27/16 at 15:30 Lorazepam (Ativan) 0.5 mg Q6H PRN IV ANXIETY; Start 08/27/16 at 15:30 Hydralazine HCl (Apresoline) 10 mg Q6H PRN IV ELEVATED BLOOD PRESSURE; Start at 15:30 Nitroglycerin (Nitroglycerin (Sl Tab) 0.4 Mg) 1 tab Q5M PRN SL ANGINA Last administered on 08/28/16 02:16; Admin Dose 1 TAB; Start 08/27/16 at 15:30 Diagnostic Test (Pha) (Accu-Chek) 1 ea 02 XX Last administered on 08/28/16 02: 16; Admin Dose 1 EA; Start 08/28/16 at 02:00 Insulin Glargine (Lantus) 15 unit DAILY@20 SC Last administered on 08/27/16 20 :15; Admin Dose 15 UNIT; Start 08/27/16 at 20:00 Miscellaneous Information 1 ea NOTE XX ; Start 08/27/16 at 16:00 Glucose (Glutose) 15 gm Q15M PRN PO DECREASED GLUCOSE; Start 08/27/16 at 16:00 Glucose (Glutose) 22.5 gm Q15M PRN PO DECREASED GLUCOSE; Start 08/27/16 at 16: 00 Dextrose (D50w Syringe) 25 ml Q15M PRN IV DECREASED GLUCOSE; Start 08/27/16 at 16:00 Dextrose (D50w Syringe) 50 ml Q15M PRN IV DECREASED GLUCOSE; Start 08/27/16 at 16:00 Glucagon (Glucagen) 1 mg Q15M PRN IM DECREASED GLUCOSE; Start 08/27/16 at 16:00 Glucose (Glutose) 15 gm Q15M PRN BUCCAL DECREASED GLUCOSE; Start 08/27/16 at 16 :00 Metoprolol Succinate (Toprol Xl) 50 mg DAILY PO Last administered on 08/28/16t 09:10; Admin Dose 50 MG; Start 08/28/16 at 09:00 JORDYN MUIR MD Aug 28, 2016 16:59
--- NOTE | 2016-08-28 20:02 | RADRPT ---
Echocardiogram Report Patient Name: KEMAL LANDRY Gender: Male Date: 1965 Study Date: 28-Aug-2016 [place] Singer: [facility] Location: 110 Ref. Physician: BEVERLY SWARTZ Quality: Adequate Procedures: Transthoracic echocardiogram with complete 2D, M-Mode, and doppler examination. Indications: NSTEMI. 2D/M Mode Doppler Measurement Value Normal Ranges Measurement Value Normal Ranges LVIDd 2D 3.9 3.5 - 5.6 cm AV Peak Petr 1.1 m/sec LVIDs 2D 2.7 2.1 - 4.1 cm AV Peak PG 5.0 mmHg FS 2D 31.6 % LVOT Peak Petr 1.0 m/sec LVPWd 2D 1.3 0.6 - 1.1 cm LVOT Peak PG 4.0 mmHg IVSd 2D 1.3 0.6 - 1.1 cm MV E Peak Petr 0.5 m/sec IVS/LVPW 2D 1.0 MV A Peak Petr 0.5 m/sec AoR Diam 2D 2.6 2.0 - 3.7 cm MV E/A 1.0 LA/Ao 2D 1 0 - 1 MV Decel Time 218 msec EDV 2D 60.7 cm3 MV E/A 1.0 ESV 2D 19.5 cm3 TR Peak Petr 2.5 m/sec LA Dimen 2D 3.5 2.3 - 4.0 cm TR Peak PG 25.0 mmHg RVSP 28.0 mmHg Findings Left Ventricle: Normal left ventricular systolic function. Normal left ventricular cavity size. Mild concentric left ventricular hypertrophy. Ejection fraction is visually estimated at 65 %. Tissue Doppler/Mitral Doppler indices are consistent with impaired relaxation (Stage I diastolic dysfunction). Right Ventricle: Normal right ventricular systolic function. Mild enlargement of right ventricle. Left Atrium: The left atrium is normal in size. Right Atrium: The right atrium is normal in size. Mitral Valve: Mitral valve leaflets appear mildly thickened. Mild mitral annular calcification. Trace mitral regurgitation. Aortic Valve: Normal appearance of the aortic valve. No significant aortic stenosis or insufficiency. Tricuspid Valve: Normal appearance of the tricuspid valve. Estimated peak PA systolic pressure 28 mmHg. There is mild tricuspid regurgitation. Pulmonic Valve: Pulmonic valve not well visualized. There is trace pulmonic regurgitation. Pericardium: Normal pericardium with no significant pericardial effusion. Aorta: Normal aortic root. IVC: Normal size and normal respiratory collapse consistent with normal right atrial pressure. Conclusions Fair quality study. Mild concentric left ventricular hypertrophy with normal systolic function. Mildly dilated right ventricle. No significant valvular abnormalities noted. Electronically Signed By: Beverly Swartz 28-Aug-2016 20:02:01 -0700 Patient Name: KEMAL LANDRY Study Date: 28-Aug-2016 [id number]
[2016-08-28] MEDS: ATORVASTATIN 80 MG TAB PO SCH (22:25)
[2016-08-28] MEDS: INSULIN GLARGINE [LANtus] 3 ML PEN SC SCH (22:25)
[2016-08-29] MEDS: ACCU-CHEK XX SCH (02:35)
[2016-08-29] MEDS: INSULIN ASPART [NOVOLOG] 3 ML PEN SC SCH (07:50)
[2016-08-29 08:00] VITALS: BP 100/56; RESP 18
[2016-08-29] MEDS: CLOPIDOGREL 75 MG TAB PO SCH (08:35)
[2016-08-29] MEDS: FAMOTIDINE 20 MG TAB PO SCH (08:35)
[2016-08-29] MEDS: ASPIRIN 81 MG TAB PO SCH (08:35)
[2016-08-29] MEDS: METOPROLOL (XL) 50 MG TAB PO SCH (08:36)
[2016-08-29 08:43] LABS: BASOPHIL # 0.1 10^3/ul (0.0-0.1); BASOPHILS % 0.5 % (0.0-2.0); EOSINOPHILS # 0.2 10^3/ul (0.0-0.5); EOSINOPHILS % 1.6 % (0.0-7.0); HEMATOCRIT 45.7 % (42.0-52.0); HEMOGLOBIN 14.9 g/dl (14.0-18.0); LYMPHOCYTES # 2.9 10^3/ul (0.8-2.9); LYMPHOCYTES % 24.7 % (15.0-51.0); MEAN CORPUSCULAR HGB CONC 32.6 g/dl (32.0-37.0); MEAN CORPUSCULAR VOLUME 85.9 fl (82.0-101.0); MEAN PLATELET VOLUME 10.9 fl (7.4-10.4); MONOCYTE # 1.3 10^3/ul (0.3-0.9); NEUTROPHIL # 7.3 10^3/ul (1.6-7.5); NEUTROPHILS % 61.9 % (39.0-77.0); PLATELET COUNT 268 10^3/UL (140-415); RED BLOOD COUNT 5.32 10^6/ul (4.70-6.10); WHITE BLOOD COUNT 11.9 10^3/ul (4.8-10.8)
[2016-08-29] MEDS: LOSARTAN 25 MG TAB PO SCH (10:30)
[2016-08-29] MEDS ORDERED: ASPI81TA3 PO (12:40)
[2016-08-29] MEDS ORDERED: ATOR80TA75 PO (12:40)
[2016-08-29] MEDS ORDERED: CLOP75TA28 PO (12:40)
[2016-08-29] MEDS ORDERED: LANT3I SC (12:40)
[2016-08-29] MEDS ORDERED: LOSA25TA2 PO (12:40)
[2016-08-29] MEDS ORDERED: METO50TA16 PO (12:40)
--- NOTE | 2016-08-29 12:50 | PDOCDIS ---
Discharge Instructions CONDITION Patient Condition: Stable HOME CARE INSTRUCTIONS: Special Diet: LOW FAT/LOW CHOL FOLLOW UP/APPOINTMENTS Follow-up Plan Follow up with the mac operator/heart doctor within 10 days Seguimiento con el cardilogo / mdico del willian dentro de [address] Beverly Swartz [address] [address] Follow up with your regular doctor within 7 days regarding your diabetes Be sure to check your blood sugar three times daily (before each meal) and bring the results to your regular doctor Siga con otoole mdico habitual dentro de los [address] con respecto a otoole diabetes Asegrese de revisar otoole nivel de azcar en la luis daniel willie veces al da (antes de cada comida) y traer los resultados a otoole mdico habitual JORDYN MUIR MD Aug 29, 2016 12:49
--- NOTE | 2016-08-29 12:53 | DS ---
Date/Time of Note Date/Time of Note DATE: 08/29/16 TIME: 12:52 Discharge Summary Admission/Discharge Info Admit Date/Time Aug 27, 2016 at 15:53 Discharge Date/Time Discharge Diagnosis NSTEMI, uncontrolled DM2 Patient Condition: Good Consults cardiology Procedures a1c 12s 08.27: Coronary angiography, left heart catheterization, left ventriculography, angioplasty and stent placement to the mid LAD and ostial/proximal LCX extending into the OM1 7.24 TTE Conclusions Fair quality study. Mild concentric left ventricular hypertrophy with normal systolic function. Mildly dilated right ventricle. No significant valvular abnormalities noted. Hx of Present Illness 51-year-old male past medical history of diabetes, hypertension, who presents with left-sided chest pressure radiating to his left upper extremity. He does not have any significant past medical history but does have a family history with a mother with acute VA at an early age. He states personally 3 years ago he felt something similar but was not evaluated. Over the course of that timeframe he occasionally has this discomfort usually when he is exerting himself and sweating while at work. He works in construction. He denies any exertional component today and states that the symptoms started yesterday evening. He describes constant symptoms now currently since yesterday around 11 PM. He denies any pleuritic pain, no migratory pain, no pain to the middle of his back. No reproducible symptoms. When he came into the ER today he was found with elevated troponin, signs of non-ST elevated VA, and taken to the [facility] where he had 2 stents placed, one to his LAD, 1 to his circumflex artery. He is presently in the intensive care unit now on aspirin and Plavix. Hospital Course Pt presented with NSTEMI, underwent pci to LCX and LAD 7, with a chronically occluded RCA. Pt started on CAD/post PCI regimen of DAPT with asa/plavix, statin , arb, bb. Pt also noted to have significant hyperglycemia-->a1c found to be in 12s. Pt without any previous knowledge that he had diabetes. He was started on insulin and a DM educator consult was placed. Pt to be discharged on insulin with PCP f/u for his DM and CAD meds as above and cardiology f/u copy of DC summary included for pt in his discharge paperwork Home Meds Active Scripts Insulin Glargine* (Lantus*) 100 Unit/Ml Soln, 15 UNIT SC DAILY@20 for 30 Days, # 1 VIAL Prov:JORDYN MUIR MD 08/29/16 Aspirin (Aspirin) 81 Mg Chew, 81 MG PO DAILY for 30 Days, #30 TAB Prov:JORDYN MUIR MD 08/29/16 Metoprolol Succinate* (Toprol XL*) 50 Mg Tab.er.24h, 50 MG PO DAILY for 30 Days , #30 Prov:JORDYN MUIR MD 08/29/16 Losartan Potassium* (Cozaar*) 25 Mg Tablet, 25 MG PO DAILY for 30 Days, #30 TAB Prov:JORDYN MUIR MD 08/29/16 Atorvastatin* (Atorvastatin*) 80 Mg Tablet, 80 MG PO HS for 30 Days, #30 TAB Prov:JORDYN MUIR MD 08/29/16 Clopidogrel Bisulfate (Clopidogrel) 75 Mg Tablet, 75 MG PO DAILY for 30 Days, # 30 TAB Prov:JORDYN MUIR MD 08/29/16 Follow-up Plan new PCP within 7 days for DM management. pt should also get ChemP as he's been started on an ARB cardiology within 10 days Primary Care Provider Care Physician No Primary Time spent on discharge: > 30 minutes Pending Labs Laboratory Tests Test 08/28/16 17:33 08/28/16 21:52 08/28/16 22:55 08/29/16 02:14 Bedside Glucose 145mg/dL (70-220) 209mg/dL (70-220) 220mg/dL (70-220) 161mg/dL (70-220) Test 08/29/16 07:56 08/29/16 08:14 08/29/16 12:32 White Blood Count 11.910^3/ul (4.8-10.8) Red Blood Count 5.3210^6/ul (4.70-6.10) Hemoglobin 14.9g/dl (14.0-18.0) Hematocrit 45.7% (42.0-52.0) Mean Corpuscular Volume 85.9fl (82.0-101.0) Mean Corpuscular Hemoglobin 28.0pg (29.0-33.0) Mean Corpuscular Hemoglobin Concent 32.6g/dl (32.0-37.0) Red Cell Distribution Width 13.0% (11.5-14.5) Platelet Count 18451^3/UL (140-415) Mean Platelet Volume 10.9fl (7.4-10.4) Neutrophils % 61.9% (39.0-77.0) Lymphocytes % 24.7% (15.0-51.0) Monocytes % 11.0% (0.0-11.0) Eosinophils % 1.6% (0.0-7.0) Basophils % 0.5% (0.0-2.0) Nucleated Red Blood Cells % 0.0/100WBC (0.0-0.0) Neutrophils # 7.310^3/ul (1.6-7.5) Lymphocytes # 2.910^3/ul (0.8-2.9) Monocytes # 1.310^3/ul (0.3-0.9) Eosinophils # 0.210^3/ul (0.0-0.5) Basophils # 0.110^3/ul (0.0-0.1) Nucleated Red Blood Cells # 0.010^3/ul (0.0-0.0) Bedside Glucose 119mg/dL (70-220) 169mg/dL (70-220) JORDYN MUIR MD Aug 29, 2016 12:53
--- NOTE | 2016-08-30 08:58 | RADRPT ---
Vent Rate: 70 bpm RR Interval: 0 msec NV Interval: 130 msec QRS Duration: 94 msec QT Interval: 384 msec QTC Interval: 414 msec P-R-T [place]: 60 - 63 - 64 degrees Normal sinus rhythm Incomplete right bundle branch block Borderline ECG Electronically Signed By: Don Burrell [id number]
== END 2016-08-29 17:00 | disposition home or self-care (01) | DRG 247 ==
LOC: EDBD 10:25 → E/R 10:25 → SDS 12:50 → CCL 12:50 → ICU 15:53 → MS1 15:53
PROVIDERS: ADMIT Hospitalist; ATTEND Hospitalist
PROC: B211YZZ Fluoroscopy of Multiple Coronary Arteries using Other Contrast (ICD-10-PCS; 2016-08-27)
PROC: B215YZZ Fluoroscopy of Left Heart using Other Contrast (ICD-10-PCS; 2016-08-27)
PROC: 3E033PZ Introduction of Platelet Inhibitor into Peripheral Vein, Percutaneous Approach (ICD-10-PCS; 2016-08-27)
PROC: 027135Z Dilation of Coronary Artery, Two Arteries with Two Drug-eluting Intraluminal Devices, Percutaneous Approach (ICD-10-PCS; principal; 2016-08-27 13:00)
PROC: 4A023N7 Measurement of Cardiac Sampling and Pressure, Left Heart, Percutaneous Approach (ICD-10-PCS; 2016-08-27 13:00)
DX: I21.4 Non-ST elevation (NSTEMI) myocardial infarction (principal); E11.65 Type 2 diabetes mellitus with hyperglycemia; I10 Essential (primary) hypertension; I25.10 Atherosclerotic heart disease of native coronary artery without angina pectoris; E78.5 Hyperlipidemia, unspecified; F10.20 Alcohol dependence, uncomplicated; Z79.4 Long term (current) use of insulin; Z79.02 Long term (current) use of antithrombotics/antiplatelets; Z79.82 Long term (current) use of aspirin; Z87.891 Personal history of nicotine dependence
CPT/HCPCS: 36415; 71010; 80048; 80061; 82550; 82553; 82962; 83036; 83735; 84100; 84439; 84443; 84484; 85025; 85610; 85730; 87081; 92929; 93005; 93306; 93458; 96374; 96375; C1769; C1874; C1887; J1644; J1815; J2250; J2270; J2405; J3010; J3411; J7030; J7040; Q9967